=== PATIENT | female | born 1940 | race Caucasian/White ===

== ENCOUNTER 2021-07-27 16:59 | Inpatient (IN) ==
[2021-07-27] MEDS ORDERED: Naloxone 0.4 MG/ML INJ IVP PRN (19:35)
[2021-07-27] MEDS ORDERED: Melatonin 3 MG TABLET PO PRN (19:35)
[2021-07-27] MEDS ORDERED: Potassium Chloride Elixir 20 MEQ/15 ML UDC GTUBE ONE (19:39)
[2021-07-27] MEDS ORDERED: 0.9 % Sodium Chloride 1,000 ML IVC SCH (19:45)
[2021-07-27] MEDS ORDERED: Aspirin 325 MG TABLET PO ONE (20:23)
[2021-07-28] MEDS: *HR* Heparin 5,000 UNIT/ML VIAL SQ SCH ×2 (05:10→17:01)
[2021-07-28] MEDS: Levothyroxine 25 MCG TABLET PO SCH (05:35)
[2021-07-28 05:40] LABS: Hematocrit 33.6 % (35.3-44.9); Hemoglobin 10.5 g/dL (11.5-15.4); Mean Corpuscular HGB Conc 31.3 g/dL (31.6-35.5); Mean Corpuscular Hemoglobin 29.8 pg (28.0-33.3); Mean Corpuscular Volume 95.5 fL (83.0-100.0); Mean Platelet Volume 10.6 fL (9.4-12.4); Platelet Count 204 K/mcL (140-400); Red Blood Count 3.52 M/mcL (3.82-4.97); Red Cell Distribution Width 17.4 % (11.5-14.5); White Blood Count 5.9 K/mcL (4.3-11.1)
[2021-07-28 06:10] LABS: Calcium 7.9 mg/dL (8.6-10.3); Magnesium 1.8 mg/dL (1.6-2.6); Phosphorous 3.4 mg/dL (2.7-4.5); Potassium 4.7 mEq/L (3.5-5.1); Troponin I 0.04 ng/mL (< 0.04)
[2021-07-28] MEDS ORDERED: Perflutren Lipid Microsphere 1.3 ML in 0.9 % Sodium Chloride 8.7 ML IVP PRN (08:50)
[2021-07-28] MEDS: Aspirin 81 MG TAB.CHEW PO SCH (09:35)
[2021-07-29 01:27] LABS: Albumin 3.1 g/dL (3.5-5.7); Albumin/Globulin Ratio 0.9 (1.1-2.2); Bilirubin,Total 0.4 mg/dL (0.3-1.0); Calcium 8.2 mg/dL (8.6-10.3); Chol/HDL Ratio 3.1 (0-4.9); Globulin 3.3 g/dL (2.4-3.5); Potassium 4.4 mEq/L (3.5-5.1); Total Protein 6.4 g/dL (6.4-8.9)
[2021-07-29] MEDS: *HR* Heparin 5,000 UNIT/ML VIAL SQ SCH ×2 (05:06→18:25)
[2021-07-29] MEDS: Levothyroxine 25 MCG TABLET PO SCH (05:06)
[2021-07-29] MEDS: Aspirin 81 MG TAB.CHEW PO SCH (08:46)
[2021-07-29] MEDS: amLODIPine 5 MG TABLET PO SCH (13:30)
[2021-07-29] MEDS ORDERED: Ondansetron 4 MG/2 ML VIAL IVP PRN (18:10)
[2021-07-30 01:59] LABS: Hematocrit 30.9 % (35.3-44.9); Hemoglobin 9.7 g/dL (11.5-15.4); Mean Corpuscular HGB Conc 31.4 g/dL (31.6-35.5); Mean Corpuscular Hemoglobin 29.7 pg (28.0-33.3); Mean Corpuscular Volume 94.5 fL (83.0-100.0); Mean Platelet Volume 10.6 fL (9.4-12.4); Platelet Count 202 K/mcL (140-400); Red Blood Count 3.27 M/mcL (3.82-4.97); Red Cell Distribution Width 17.3 % (11.5-14.5); White Blood Count 6.2 K/mcL (4.3-11.1)
[2021-07-30 02:21] LABS: Calcium 8.1 mg/dL (8.6-10.3); Potassium 4.4 mEq/L (3.5-5.1)
[2021-07-30] MEDS: Levothyroxine 25 MCG TABLET PO SCH (05:57)
[2021-07-30] MEDS: *HR* Heparin 5,000 UNIT/ML VIAL SQ SCH ×2 (05:57→16:45)
[2021-07-30] MEDS ORDERED: DAPTOmycin 500 MG in 0.9 % Sodium Chloride 100 ML IVPB SCH (08:00)
[2021-07-30] MEDS: clonazePAM 0.5 MG TABLET PO SCH ×2 (08:44→21:02)
[2021-07-30] MEDS: amLODIPine 5 MG TABLET PO SCH (08:44)
[2021-07-30] MEDS: Aspirin 81 MG TAB.CHEW PO SCH (08:44)
[2021-07-31] MEDS: Levothyroxine 25 MCG TABLET PO SCH (05:10)
[2021-07-31] MEDS: *HR* Heparin 5,000 UNIT/ML VIAL SQ SCH (05:10)
[2021-07-31 07:49] LABS: Hematocrit 31.8 % (35.3-44.9); Hemoglobin 9.7 g/dL (11.5-15.4); Mean Corpuscular HGB Conc 30.5 g/dL (31.6-35.5); Mean Corpuscular Volume 94.9 fL (83.0-100.0); Mean Platelet Volume 10.9 fL (9.4-12.4); Platelet Count 212 K/mcL (140-400); Red Blood Count 3.35 M/mcL (3.82-4.97); Red Cell Distribution Width 17.1 % (11.5-14.5); White Blood Count 6.9 K/mcL (4.3-11.1)
[2021-07-31 07:55] LABS: BUN/Creatinine Ratio 17 (6-26); Blood Urea Nitrogen 16 mg/dL (8-23); Calcium 8.3 mg/dL (8.6-10.3); Carbon Dioxide 23 mEq/L (23-29); Chloride 106 mEq/L (98-107); Glucose 77 mg/dL (70-105); Osmolality,Calculated 288 (280-300); Potassium 3.9 mEq/L (3.5-5.1); Sodium 139 mEq/L (136-145); eGFR For African Americans > 60 (> 60); eGFR For Non-African Americans 57 (> 60)
[2021-07-31] MEDS: Aspirin 81 MG TAB.CHEW PO SCH (08:11)
[2021-07-31] MEDS: clonazePAM 0.5 MG TABLET PO SCH (08:11)
[2021-07-31] MEDS: amLODIPine 5 MG TABLET PO SCH (08:11)
[2021-07-31 10:19] VITALS: BP 111/67; PULSE 72; TEMP 98.6; O2SAT 94
== END 2021-07-31 16:02 | DRG 682 ==
LOC: 3BNU
PROVIDERS: ADMIT Internal Medicine; ATTEND Internal Medicine